=== PATIENT | female | born 1990 | race Caucasian/White ===

== ENCOUNTER 2021-02-09 02:53 | Inpatient (IN) | payer OTHER ==
[~2021-02-09] VITALS: Ht 170.2 cm; Wt 94.4 kg
[2021-02-09] VITALS (28 sets, daily range): BP systolic 113–150; BP diastolic 56–94
[2021-02-09] MEDS ORDERED: MINERAL OIL CONCENTRATE 99.9% 15 ML UDC TOP PRN (16:00)
[2021-02-09] MEDS ORDERED: D5 LR IV SOLUTION 1,000 ML IV ONE (16:01)
[2021-02-09] MEDS: D5 LR IV SOLUTION 1,000 ML IV SCH (16:20)
[2021-02-09 16:29] LABS: BASOPHILS % (AUTO) 0 % (0-10); EOSINOPHILS # (AUTO) 0.1 10^3/uL (0.0-0.3); EOSINOPHILS % (AUTO) 1 % (0-10); HEMATOCRIT 36 % (35-52); HEMOGLOBIN 12.1 g/dL (11.5-16.0); LYMPHOCYTES # (AUTO) 2.3 10^3/uL (1.0-4.0); LYMPHOCYTES % (AUTO) 26 % (12-44); MEAN CORPUSCULAR HEMOGLOBIN 30 pg (25-34); MEAN CORPUSCULAR HGB CONC 34 g/dL (32-36); MEAN CORPUSCULAR VOLUME 89 fL (80-99); MEAN PLATELET VOLUME 12.4 fL (9.0-12.2); MONOCYTES # (AUTO) 0.6 10^3/uL (0.0-1.0); MONOCYTES % (AUTO) 6 % (0-12); NEUTROPHILS # (AUTO) 5.9 10^3/uL (1.8-7.8); NEUTROPHILS % (AUTO) 66 % (42-75); PLATELET COUNT 155 10^3/uL (130-400); WHITE BLOOD COUNT 8.9 10^3/uL (4.3-11.0)
[2021-02-09 16:57] LABS: URIC ACID 4.8 MG/DL (2.6-7.2)
[2021-02-09 17:01] LABS: ALBUMIN 3.4 GM/DL (3.2-4.5); POTASSIUM 3.7 MMOL/L (3.6-5.0)
[2021-02-09 17:02] LABS: CALCIUM 9.7 MG/DL (8.5-10.1)
[2021-02-09 17:03] LABS: TOTAL PROTEIN 6.5 GM/DL (6.4-8.2)
[2021-02-09 17:05] LABS: BILIRUBIN,TOTAL 0.5 MG/DL (0.1-1.0)
[2021-02-09 17:07] LABS: CREATININE SERUM 0.61 MG/DL (0.60-1.30)
[2021-02-09 17:13] LABS: URINE CREATININE FOR RATIO 30 MG/DL (30-125)
[2021-02-09 17:14] LABS: URINE PROTEIN FOR RATIO ONLY < 6 MG/DL (6-12)
[2021-02-09] MEDS: OXYTOCIN PRE-MIX DRIP 500 ML IV SCH (17:16)
[2021-02-09] MEDS ORDERED: CATHETER FLUSH 10 ML SYR IV SCH (22:00)
[2021-02-10] VITALS (39 sets, daily range): BP systolic 104–168; BP diastolic 54–103
[2021-02-10] MEDS: D5 LR IV SOLUTION 1,000 ML IV SCH (00:21)
[2021-02-10] MEDS ORDERED: ACETAMINOPHEN 500 MG TAB (TYLENOL) ONE (03:53)
[2021-02-10] MEDS ORDERED: ACETAMINOPHEN 500 MG TAB (TYLENOL) PO ONE (04:00)
[2021-02-10] MEDS ORDERED: fentaNYL 2 mcg/ml BUPIVA 0.125 100 ML ONE (04:58)
[2021-02-10] MEDS ORDERED: fentaNYL INJ 100 MCG/2 ML AMP ONE (05:20)
[2021-02-10] MEDS ORDERED: BUPIVACAINE 0.25% 30 ML (SENSORCAINE) VIAL ONE (05:20)
[2021-02-10] MEDS ORDERED: EPIDURAL (fentaNYL 2 MCG/ML BUPIVA 0.125%)100 ML BAG EPI PRN (05:30)
[2021-02-10] MEDS ORDERED: ONDANSETRON 4 MG/2 ML (SDV) Z0FRAN IV PRN (05:30)
[2021-02-10] MEDS ORDERED: LACTATED RINGERS 1,000 ML IV ONE ×2 (05:30)
[2021-02-10] MEDS ORDERED: NALOXONE 0.4 MG/ML 1 ML (NARCAN) VIAL IV PRN (05:30)
[2021-02-10] MEDS ORDERED: fentaNYL INJ 100 MCG/2 ML AMP INJ ONE (05:30)
--- NOTE | 2021-02-10 05:45 | History & Physical-OB ---
OB - Chief Complaint & HPI Date/Time Date of Admission: Date of Admission: Feb 09, 2021 at 15:41 Date seen by a Provider: Feb 10, 2021 Time Seen by a Provider: 05:25 Chief Complaint/History OB-Reason for Admission/Chief: Induction of Labor Hx : 3 Hx Para: 2 Expected Date of Delivery: Feb 11, 2021 Gestational Age in Weeks: 39 Gestational Age in Days: 5 Indication for induction: other (Gestational HTN) History of Labs O+, Ab neg Rub Imm HIV/RPR/HepB/C NR GC/Chyl neg GBS neg Allergies and Home Medications Allergies Coded Allergies: shellfish derived (Verified Allergy, Unknown, 02/09/21) Patient Home Medication List Home Medication List Reviewed: Yes OB - History Hx of Present Care: Yes Ultrasounds: Normal mid trimester US Obstetrical Complications: Gestational Hypertension Medical Complications: None Information Induced Hypertension: No Maternal Gestational Diabetes: No Hemorrhage: No Obstetrical History Hx : 3 Hx Para: 2 Hx # Term Pregnancies: 2 Number of Living Children: 2 Patient Past Medical History NA Social History/Family History Alcohol Use: Denies Use Smoking Cessation: Never smoker Immunizations Hepatitis A: Yes Hepatitis B: Yes Tetanus Booster (TDap): Less than 5yrs Rubella: immune RPR/VDRL: Negative GBS Status: Negative HBsAG: Negative OB - Admission Exam Physical Exam Vitals: Vital Signs 02/10/21 03:55 Temp 36.8 Pulse 80 Resp 18 B/P (MAP) 123/68 (86) O2 Delivery Room Air HEENT: NCAT Heart: Rhythm Normal Lungs: Clear Abdomen: Gravid Cervical Dilatation: 10cm Effacement: 100% Station: 0 Membranes: Intact Heart Rate: 140's Accelerations: Accelerations Present Decelerations: No Decelerations Short Term Variability: Present Contractions on Admission: < 5 Minutes Apart Intensity: Moderate Sarah Scoring Tool (Modified) Dilation (cm): 1-2cm (1) Effacement (%): 51-79% (2) Descent/Station: -1,0 (2) Cervix Consistency: Medium(1) Cervix Position: Middle/Mid-Position (1) Add 1 point for: Each previous vaginal delivery (1) Sarah Score: 9 Labs Laboratory Tests Test 02/09/21 15:40 9/8/21 16:15 Range/Units Urine Protein < 6 L 6-12 MG/DL Urine Creatinine 30 30-125 MG/DL Urine Protein/Creatinine Ratio Sodium Level 137 135-145 MMOL/L Potassium Level 3.7 3.6-5.0 MMOL/L Chloride Level 108 H 98-107 MMOL/L Carbon Dioxide Level 21 21-32 MMOL/L Anion Gap 8 5-14 MMOL/L Blood Urea Nitrogen 7 7-18 MG/DL Creatinine 0.61 0.60-1.30 MG/DL Estimat Glomerular Filtration Rate 114 BUN/Creatinine Ratio 11 Glucose Level 74 70-105 MG/DL Calcium Level 9.7 8.5-10.1 MG/DL Corrected Calcium 10.2 H 8.5-10.1 MG/DL Total Bilirubin 0.5 0.1-1.0 MG/DL Aspartate Amino Transf (AST/SGOT) 26 5-34 U/L Alanine Aminotransferase (ALT/SGPT) 35 0-55 U/L Alkaline Phosphatase 134 40-136 U/L Total Protein 6.5 6.4-8.2 GM/DL Albumin 3.4 3.2-4.5 GM/DL White Blood Count 8.9 4.3-11.0 10^3/uL Red Blood Count 4.05 3.80-5.11 10^6/uL Hemoglobin 12.1 11.5-16.0 g/dL Hematocrit 36 35-52 % Mean Corpuscular Volume 89 80-99 fL Mean Corpuscular Hemoglobin 30 25-34 pg Mean Corpuscular Hemoglobin Concent 34 32-36 g/dL Red Cell Distribution Width 13.1 10.0-14.5 % Platelet Count 155 130-400 10^3/uL Mean Platelet Volume 12.4 H 9.0-12.2 fL Immature Granulocyte % (Auto) 1 % Neutrophils (%) (Auto) 66 42-75 % Lymphocytes (%) (Auto) 26 12-44 % Monocytes (%) (Auto) 6 0-12 % Eosinophils (%) (Auto) 1 0-10 % Basophils (%) (Auto) 0 0-10 % Neutrophils # (Auto) 5.9 1.8-7.8 10^3/uL Lymphocytes # (Auto) 2.3 1.0-4.0 10^3/uL Monocytes # (Auto) 0.6 0.0-1.0 10^3/uL Eosinophils # (Auto) 0.1 0.0-0.3 10^3/uL Basophils # (Auto) 0.0 0.0-0.1 10^3/uL Immature Granulocyte # (Auto) 0.1 0.0-0.1 10^3/uL Uric Acid 4.8 2.6-7.2 MG/DL Lactate Dehydrogenase 174 125-220 U/L OB - Assessment/Plan/Diagnosis Assessment Admission Dx Third Trimester 39 week gestation Gestational HTN Admission Status: Inpatient Order (span 2 midnights) Reason for Inpatient Admission: Labor Plan Plan: Induction Other Plan 30 yo @ 39.6 wga here for IOL 2/2 to Gestational HTN, blood pressures 150/100s in office today Plan - Pre eclamptic Labs - Pitocin protocol, Dr Headley notified of IOL - GBS neg Copy Copies To 1: DARI ELAINE MD, HOLLY R MD Feb 10, 2021 05:45
[2021-02-10] MEDS ORDERED: LIDOCAINE PF 2% 5 ML (XYLOCAINE) VIAL ONE (05:46)
[2021-02-10] MEDS: OXYTOCIN PRE-MIX DRIP 500 ML IV SCH (06:40)
--- NOTE | 2021-02-10 06:58 | OB Labor & Delivery Record ---
Vag Delivery Note Vag Delivery Note Date of Delivery: 02/10/21 Preoperative Diagnosis: Molly Givens is a (30 /Para 3/2 ,Gestational Age (wks)39.6 here for IOL 2/2 Gestational HTN Postoperative Diagnosis: Same Surgeon: DARI ELAINE Assistant Press Operator: None Anesthesia: Epidural Delivery Type: 0616 Findings: Viable female infant, apgars 9/9, weight 8#8, 3050 grams Lacerations: vertical tear inferior to clitoris Intact placenta with 3 vessel cord. No nuchal cord, body cord or shoulder dysto ewa Estimated Blood Loss: 120 ml Complications: None Condition: Stable Description of Procedure: The patient is a 30 year old female who presented for IOL for Gestational HTN. She was admitted and informed consent was obtained. Her labor course was remarkable for elevated blood pressures that did not meet threshold for acute treatment. She progressed to complete dilatation and began to push. She was then set up for delivery. The 's head was delivered atraumatically in the LIDA position. The shoulders and remainder of the 's body were then delivered without difficulty. Upon delivery, the head was held below the level of the perineum and the mouth and nares were bulb suctioned. The cord was doubly clamped and cut by FOB after 2 min delay and the infant was attended to by the pediatric staff on maternal abdomen. An intact placenta with 3-vessel cord delivered via Livan and there was found to be minimal bleeding.~ Vigorous fundal massage was performed and the fundus was found to be firm. IV oxytocin was given. Examination of the vagina and perineum revealed a vertical laceration inferior to clitoris repaired in the usual fashion with 3-0 vicryl suture. Following the repair, sponge, instrument and needle counts were correct. Mom and baby were both in stable condition in the labor suite. Vitals - Labs Vital Signs - I&O Vital Signs Date Time Temp Pulse Resp B/P (MAP) Pulse Ox O2 Delivery O2 Flow Rate FiO2 02/10/21 03:55 36.8 80 18 123/68 (86) Room Air 02/10/21 03:25 80 18 116/64 (81) Room Air 02/10/21 03:10 67 18 116/58 (77) Room Air 02/10/21 02:55 79 18 120/67 (84) Room Air 02/10/21 02:40 82 18 123/69 (87) Room Air 02/10/21 02:25 75 18 122/70 (87) Room Air 02/10/21 02:10 78 18 127/71 (89) Room Air 02/10/21 01:55 59 18 117/62 (80) Room Air 02/10/21 01:40 64 18 123/69 (87) Room Air 02/10/21 01:25 54 18 120/66 (84) Room Air 02/10/21 01:10 68 18 121/65 (83) Room Air 02/10/21 00:55 62 18 127/73 (91) Room Air 02/10/21 00:40 72 18 133/71 (91) Room Air 02/10/21 00:25 71 18 104/54 (71) Room Air 02/09/21 23:55 77 18 135/76 (95) Room Air 02/09/21 23:40 77 18 135/72 (93) Room Air 02/09/21 23:25 78 18 130/79 (96) Room Air 02/09/21 23:10 81 18 136/75 (95) Room Air 02/09/21 22:55 75 18 138/79 (98) Room Air 02/09/21 22:40 77 18 127/60 (82) Room Air 02/09/21 22:25 80 18 126/60 (82) Room Air 02/09/21 22:10 93 18 127/60 (82) Room Air 02/09/21 21:55 76 18 127/60 (82) Room Air 02/09/21 21:40 78 18 128/59 (82) Room Air 02/09/21 21:25 73 18 113/56 (75) Room Air 02/09/21 21:10 75 18 134/75 (94) Room Air 02/09/21 20:55 71 18 140/82 (101) Room Air 02/09/21 20:40 78 18 139/78 (98) Room Air 02/09/21 20:25 76 18 136/74 (94) Room Air 02/09/21 20:10 88 18 144/77 (99) Room Air 02/09/21 19:55 83 18 141/72 (95) Room Air 02/09/21 19:40 36.6 83 18 128/81 (97) Room Air 02/09/21 19:25 86 18 130/85 (100) Room Air 02/09/21 19:10 84 18 136/74 (94) Room Air 02/09/21 19:00 77 18 140/76 (97) Room Air 02/09/21 18:45 75 18 136/88 (104) Room Air 02/09/21 18:25 83 18 134/84 (101) Room Air 02/09/21 18:10 85 18 138/83 (101) Room Air 02/09/21 17:55 85 18 132/89 (103) Room Air 02/09/21 17:40 81 18 135/82 (99) Room Air 02/09/21 17:25 82 18 131/82 (98) Room Air 02/09/21 15:50 36.8 92 18 98 Room Air 02/09/21 15:50 36.8 92 18 150/94 (112) 98 Room Air I & O 02/10/21 06:59 Intake Total 1000 ml Balance 1000 ml Labs Laboratory Tests 02/09/21 15:40: Urine Protein < 6L, Urine Creatinine 30, Urine Protein/Creatinine Ratio , Sodium Level 137, Potassium Level 3.7, Chloride Level 108H, Carbon Dioxide Level 21, Anion Gap 8, Blood Urea Nitrogen 7, Creatinine 0.61, Estimat Glomerular Filtration Rate 114, BUN/Creatinine Ratio 11, Glucose Level 74, Calcium Level 9.7, Corrected Calcium 10.2H, Total Bilirubin 0.5, Aspartate Amino Transf (AST/SGOT) 26, Alanine Aminotransferase (ALT/SGPT) 35, Alkaline Phosphatase 134, Total Protein 6.5, Albumin 3.4 02/09/21 16:15: White Blood Count 8.9, Red Blood Count 4.05, Hemoglobin 12.1, Hematocrit 36, Me an Corpuscular Volume 89, Mean Corpuscular Hemoglobin 30, Mean Corpuscular Hemoglobin Concent 34, Red Cell Distribution Width 13.1, Platelet Count 155, Mean Platelet Volume 12.4H, Immature Granulocyte % (Auto) 1, Neutrophils (%) (Auto) 66, Lymphocytes (%) (Auto) 26, Monocytes (%) (Auto) 6, Eosinophils (%) (Auto) 1, Basophils (%) (Auto) 0, Neutrophils # (Auto) 5.9, Lymphocytes # (Auto) 2.3, Monocytes # (Auto) 0.6, Eosinophils # (Auto) 0.1, Basophils # (Auto) 0.0, Immature Granulocyte # (Auto) 0.1, Uric Acid 4.8, Lactate Dehydrogenase 174 DARI ELAINE MD Feb 10, 2021 06:58
[2021-02-10] MEDS ORDERED: BENZOCAINE/MENTHOL (DERMOPLAST) 56 ML CAN TP PRN (07:00)
[2021-02-10] MEDS ORDERED: OXYTOCIN PRE-MIX DRIP 500 ML IV SCH (07:00)
[2021-02-10] MEDS ORDERED: WITCH HAZEL(TUCKS) 40 EA JAR TOP PRN (07:00)
[2021-02-10] MEDS: IBUPROFEN 600 MG (MOTRIN) TAB PO SCH ×2 (12:32→18:54)
[2021-02-10] MEDS: DOCUSATE SODIUM 100 MG (COLACE) CAP PO SCH ×2 (12:32→20:26)
[2021-02-10] MEDS: ACETAMINOPHEN 500 MG TAB (TYLENOL) PO SCH ×2 (12:32→18:54)
[2021-02-10] MEDS ORDERED: CATHETER FLUSH 10 ML SYR IV SCH (14:00)
[2021-02-11 00:08] VITALS: BP 117/61
[2021-02-11] MEDS: IBUPROFEN 600 MG (MOTRIN) TAB PO SCH ×5 (00:08→23:59)
[2021-02-11 04:30] VITALS: BP 118/60
[2021-02-11] MEDS: ACETAMINOPHEN 500 MG TAB (TYLENOL) PO SCH ×5 (04:30→23:59)
[2021-02-11 06:07] LABS: BASOPHILS % (AUTO) 0 % (0-10); EOSINOPHILS # (AUTO) 0.1 10^3/uL (0.0-0.3); EOSINOPHILS % (AUTO) 1 % (0-10); HEMATOCRIT 32 % (35-52); HEMOGLOBIN 10.3 g/dL (11.5-16.0); LYMPHOCYTES # (AUTO) 2.2 10^3/uL (1.0-4.0); LYMPHOCYTES % (AUTO) 27 % (12-44); MEAN CORPUSCULAR HEMOGLOBIN 30 pg (25-34); MEAN CORPUSCULAR HGB CONC 32 g/dL (32-36); MEAN CORPUSCULAR VOLUME 92 fL (80-99); MEAN PLATELET VOLUME 12.6 fL (9.0-12.2); MONOCYTES # (AUTO) 0.5 10^3/uL (0.0-1.0); MONOCYTES % (AUTO) 6 % (0-12); NEUTROPHILS # (AUTO) 5.3 10^3/uL (1.8-7.8); NEUTROPHILS % (AUTO) 65 % (42-75); PLATELET COUNT 128 10^3/uL (130-400); WHITE BLOOD COUNT 8.2 10^3/uL (4.3-11.0)
--- NOTE | 2021-02-11 08:27 | Postpartum Progress Note ---
Note Note Day # 1 Subjective: Patient is without complaints. Ambulating, voiding. Tolerating a regular diet without nausea or vomiting. Normal lochia. Pain is well controlled with oral pain medications. Breast and Bottle feeding. Objective: Physical Exam: General - Alert and oriented, no apparent distress Abdomen - Soft, appropriately tender to palpation, non-distended, fundus firm at umbilicus Extremities - no edema, negative Los's bilaterally Assessment: 30 yo G3 now P3 post- day # 1, status post spontaneous vaginal delivery. Recovering well, hemodynamically stable Plan: Routine care. Encourage breast feeding. Encourage ambulation. Ferrous sulfate supplementation. Plan for discharge tomorrow and will f.u with Dr Steven in [place] Vitals - Labs Vital Signs - I&O Vital Signs Date Time Temp Pulse Resp B/P (MAP) Pulse Ox O2 Delivery O2 Flow Rate FiO2 02/11/21 04:30 36.3 83 18 118/60 (79) 97 Room Air 02/11/21 00:08 36.4 80 18 117/61 (79) 97 Room Air 02/10/21 19:15 36.8 63 18 110/57 (74) 96 Room Air 02/10/21 12:34 36.7 60 18 118/69 (85) 97 Room Air 02/10/21 09:30 72 18 132/70 (90) Room Air 02/10/21 09:15 70 18 107/60 (76) Room Air 02/10/21 09:00 68 18 116/63 (80) Room Air 02/10/21 08:45 71 18 115/67 (83) Room Air 02/10/21 08:30 76 18 126/70 (88) Room Air Labs Laboratory Tests 02/11/21 05:38: White Blood Count 8.2, Red Blood Count 3.48L, Hemoglobin 10.3L, Hematocrit 32L, Mean Corpuscular Volume 92, Mean Corpuscular Hemoglobin 30, Mean Corpuscular Hemoglobin Concent 32, Red Cell Distribution Width 13.3, Platelet Count 128L, Mean Platelet Volume 12.6H, Immature Granulocyte % (Auto) 1, Neutrophils (%) (Auto) 65, Lymphocytes (%) (Auto) 27, Monocytes (%) (Auto) 6, Eosinophils (%) (Auto) 1, Basophils (%) (Auto) 0, Neutrophils # (Auto) 5.3, Lymphocytes # (Auto) 2.2, Monocytes # (Auto) 0.5, Eosinophils # (Auto) 0.1, Basophils # (Auto) 0.0, Immature Granulocyte # (Auto) 0.1 DARI STEVEN MD Feb 11, 2021 08:27
[2021-02-11] MEDS: DOCUSATE SODIUM 100 MG (COLACE) CAP PO SCH ×2 (09:48→23:59)
[2021-02-11 09:50] VITALS: BP 114/67
[2021-02-11 13:00] VITALS: BP 120/74
[2021-02-11 17:51] VITALS: BP 158/84
[2021-02-11 23:59] VITALS: BP 129/80
[2021-02-12 06:37] VITALS: BP 135/80
[2021-02-12] MEDS: ACETAMINOPHEN 500 MG TAB (TYLENOL) PO SCH ×2 (06:37→12:53)
[2021-02-12] MEDS: IBUPROFEN 600 MG (MOTRIN) TAB PO SCH ×3 (06:37→18:24)
[2021-02-12 09:30] VITALS: BP 129/76
[2021-02-12] MEDS: DOCUSATE SODIUM 100 MG (COLACE) CAP PO SCH (09:46)
--- NOTE | 2021-02-12 12:08 | Discharge Summary ---
Diagnosis/Chief Complaint Date of Admission Feb 09, 2021 at 15:41 Date of Discharge 02/12/21 Admission Diagnosis Admission Diagnosis Third Trimester 39 week gestation Discharge Diagnosis Uncomplicated Discharge Summary-Simple/Stand Procedures Uncomplicated Discharge Physical Examination Allergies: Coded Allergies: shellfish derived (Verified Allergy, Unknown, 02/09/21) Vitals & I&Os Vital Sign - Last 12Hours Date Time Temp Pulse Resp B/P (MAP) Pulse Ox O2 Delivery O2 Flow Rate FiO2 02/12/21 09:30 36.6 85 18 129/76 (93) 97 Room Air General Appearance: Alert, Oriented X3, Cooperative, No Acute Distress HEENT: Mucous Memb Moist/[place] Respiratory: Clear to Auscultation, Normal Air Movement Cardiovascular: Regular Rate, No Murmurs Abdominal: Normal Bowel Sounds, Soft, No Tenderness, Other (Fundus firm and below umbilicus) Extremities: Other (trace swelling) Skin: No Rashes Neuro: Normal Speech, Strength at 5/5 X4 Ext, Cranial Nerves 3-12 NL Psych/Mental Status: Mental Status NL, Mood NL Hospital Course Was the Problem List Reviewed?: Yes See final discharge diagnosis. Discussion & Recommendations 30 yo G3 now P3 delivered uncomplicated @ 39.6 wga. Doing well. Plan to d/c into boarding status. F.u with Maurizio in 6 weeks Discharge Condition at discharge Stable Instructions to patient/family Please see electronic discharge instructions given to patient. Discharge Medications Reviewed and agree with Discharge Medication list on patient's Discharge I nstruction sheet Copy Copies To 1: DARI ELAINE MD, HOLLY R MD Feb 12, 2021 12:08
[2021-02-12] MEDS ORDERED: IBUP-844 PO (12:09)
[2021-02-12] MEDS ORDERED: DCS100C PO (12:09)
--- NOTE | 2021-02-12 12:10 | Discharge Summary ---
Discharge Inst-[facility] Reconcile Patient Problems Problems Reviewed?: Yes Depart Medications New, Converted or Re-Newed RX: RX on Chart New Medications: Docusate Sodium (Dok) 100 Mg Capsule 100 MG PO BID, #14 CAP Ibuprofen (Ibu) 600 Mg Tablet 600 MG PO Q6HR, #90 TAB Follow Up/Instructions Goal/Follow Up: 6 week f.u with Maurizio Activity Activity: Activity as Tolerated Driving Instructions: You May Drive NO SMOKING: NO SMOKING Nothing Inside Vagina: No Douching, No [place], No Tampons Diet Discharge Diet: No Restrictions Symptoms to Report to : Swelling Increased, Bleeding Excessive, Fever Over 101 Degrees F For Any Problems or Questions: Contact Your Physician DARI ELAINE MD Feb 12, 2021 12:10
[2021-02-12 12:45] VITALS: BP 132/81
[2021-02-12 16:30] VITALS: BP 123/75
[2021-02-12 19:00] VITALS: BP 123/75
== END 2021-02-12 19:00 | disposition home or self-care (01) | DRG 768 ==
LOC: LDRP 15:41
PROVIDERS: ADMIT Family Medicine; ATTEND Family Medicine
PROC: 10E0XZZ Delivery of Products of Conception, External Approach (ICD-10-PCS; principal; 2021-02-09)
PROC: 0UQJXZZ Repair Clitoris, External Approach (ICD-10-PCS; 2021-02-09)
DX: O13.4 Gestational [pregnancy-induced] hypertension without significant proteinuria, complicating childbirth (principal); Z37.0 Single live birth; Z3A.39 39 weeks gestation of pregnancy; O71.89 Other specified obstetric trauma
CPT/HCPCS: 36415; 80053; 82570; 83615; 84156; 84550; 85025; 86850; 86900; 86901